=== PATIENT | male | born 1985 | race Caucasian/White ===

== ENCOUNTER → 2018-02-10 | Outpatient (CLI) | payer BC | LOC: GMAE 17:37 | PROVIDERS: ATTEND Family Medicine | DX: R10.13 Epigastric pain (principal); K92.1 Melena ==

== ENCOUNTER → 2018-02-14 | Outpatient (CLI) | payer BC | LOC: GMAE 10:56 | PROVIDERS: ATTEND Family Medicine | DX: R74.0 Nonspecific elevation of levels of transaminase and lactic acid dehydrogenase [LDH] (principal) ==

== ENCOUNTER → 2018-02-19 | Outpatient (CLI) | payer BC ==
--- NOTE | 2018-02-19 10:08 | US ---
EXAM DESCRIPTION: Abdomen,Complete: Ultrasound. CLINICAL HISTORY: EPIGASTRIC ABDOMINAL PAIN COMPARISON: None Available. TECHNIQUE: Transabdominal scannin-dimensional and Doppler modes. FINDINGS: Gallbladder: No intraluminal stones or sludge. Wall thickness 1.7 mm normal range. No fluid surrounding the wall. Nontender with transducer pressure. Common bile duct: 5.3 mm normal caliber. Liver: Increased echogenicity. Long axis of the right lobe is 15.3 cm. Hepatopedal flow in the portal vein which is 1 cm diameter. No duct enlargement. Smooth capsule and no ascites. Pancreas: Not well visualized due to intestinal gas and patient body habitus.. Abdominal aorta: Normal caliber from the proximal segment to the distal bifurcation. IVC: visualized; normal caliber. Spleen normal echogenicity; long axis measurement is 10.8 cm. Right kidney: 9.7 cm long axis. Normal cortical thickness and echogenicity. No hydronephrosis or perinephric fluid. Left kidney: 11.1 cm long axis. Normal cortical thickness and echogenicity. No hydronephrosis or perinephric fluid. IMPRESSION: 1. Fatty liver but not enlarged. Normal vascularity and ducts. Smooth capsule with no ascites. Pancreas was not well seen. 2. Gallbladder and common bile duct unremarkable. 3. Spleen and kidneys negative. Normal caliber of the IVC and the abdominal aorta. Electronically signed by: Edmond Aguirre MD 02/19/2018 10:07 AM CDT
== END ==
LOC: US 08:03
PROVIDERS: ATTEND Family Medicine
DX: K92.1 Melena (principal); R10.13 Epigastric pain; K76.0 Fatty (change of) liver, not elsewhere classified

== ENCOUNTER → 2018-12-15 | Outpatient (CLI) | payer BC ==
--- NOTE | 2018-12-15 13:59 | US ---
EXAM DESCRIPTION: Testicular: Ultrasound. CLINICAL HISTORY: 33 years Male LEFT TESTICULAR PAIN COMPARISON: None. TECHNIQUE: Transcutaneous scanning ; ortega-scale and Doppler modes. FINDINGS: Dimensions of the right testicle are 4.8 x 3.3 x 2.9 cm, with normal echogenicity and normal color Doppler flow. Epididymal head measures 14.6 x 8.2 x 7.2 mm, with calcifications. Heterogeneous echogenicity.. Otherwise, normal color Doppler flow. No scrotal wall thickening. Small Hydrocele. Dimensions of the left testicle are 5.0 x 3.5 x 2.4 cm, with normal echogenicity and normal color Doppler flow. Epididymal head measures 13.7 x 12.2 x 5.3 mm, with normal echogenicity and normal color Doppler flow. No scrotal wall thickening. No Hydrocele. IMPRESSION: 1. Calcifications in the head of the right epididymis but not enlarged. No cysts. Normal vascularity. Right testicle unremarkable. Minimal fluid. No scrotal wall thickening. 2. Normal left testicle, left epididymis, and no scrotal thickness. No hydrocele. Electronically signed by: Edmond Aguirre MD 12/15/2018 1:57 PM CDT
== END ==
LOC: US 09:16
PROVIDERS: ATTEND Family Medicine
DX: N50.89 Other specified disorders of the male genital organs (principal)

== ENCOUNTER → 2018-12-25 | Outpatient (CLI) | payer BC | LOC: GMAE 10:34 | PROVIDERS: ATTEND Family Medicine | DX: M79.641 Pain in right hand (principal) ==

== ENCOUNTER → 2019-02-17 | Outpatient (CLI) | payer BC ==
--- NOTE | 2019-02-18 09:08 | MRI ---
. Study: MRI of the Left Knee. Indication: KNEE PAIN Technique: Multiplanar, multi sequence MRI of the left knee was obtained without intravenous contrast. Comparison: None. Findings: ACL, PCL, MCL, and lateral collateral ligament complex intact. Horizontal cleavage tear posterior horn/root and body medial meniscus disrupting the superior surface as well as the peripheral red zone. Multifocal millimetric para meniscal cyst formation posterior to the posterior horn and root. Discoid lateral meniscus without tear. No high-grade chondral defect medial or lateral knee compartments. 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 Tendinosis quadriceps tendon insertion and patellar tendon origin without fluid-filled tear. Patella normally located. No high-grade chondral defect patellofemoral compartment Small knee effusion. No acute fracture. Impression: Horizontal cleavage tearing posterior horn/root and body medial meniscus. 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 Tendinosis quadriceps tendon insertion and patellar tendon origin. Small knee effusion. Electronically signed by: Oumar Gage MD 02/18/2019 9:07 AM CDT
== END ==
LOC: MRI 12-31 09:05
PROVIDERS: ATTEND Family Medicine
DX: S83.242A Other tear of medial meniscus, current injury, left knee, initial encounter (principal); M65.842 Other synovitis and tenosynovitis, left hand; Q68.2 Congenital deformity of knee

== ENCOUNTER → 2019-03-09 | Outpatient (CLI) | payer BC ==
--- NOTE | 2019-03-09 10:47 | RAD ---
EXAM DESCRIPTION: Pelvis, single view CLINICAL HISTORY: PAIN IN LEFT HIP FINDINGS/ IMPRESSION: Normal mineralization. No advanced arthrosis or focal osteochondral lesion of the hip joints No fracture of the proximal femora or pelvis Electronically signed by: Anton Nj MD 03/09/2019 10:45 AM [facility]
--- NOTE | 2019-03-09 10:48 | RAD ---
EXAM DESCRIPTION: Left knee, 4 radiographs CLINICAL HISTORY: PAIN IN LEFT KNEE FINDINGS/ IMPRESSION: Bipartite patella. No advanced arthrosis or focal osteochondral lesion of the femorotibial compartments Minimal suprapatellar joint fluid. No acute fracture Electronically signed by: Anton Nj MD 03/09/2019 10:47 AM [facility]
== END ==
LOC: RAD 09:22
PROVIDERS: ATTEND Orthopaedic Surgery
DX: M25.552 Pain in left hip (principal); Q74.1 Congenital malformation of knee; M25.462 Effusion, left knee

== ENCOUNTER → 2019-12-29 | Outpatient (CLI) | payer OTHER | LOC: GMAE 14:53 | PROVIDERS: ATTEND Family Medicine | DX: R94.5 Abnormal results of liver function studies (principal); Z79.899 Other long term (current) drug therapy; R73.09 Other abnormal glucose ==

== ENCOUNTER → 2019-12-30 | Outpatient (CLI) | payer BC, OTHER ==
--- NOTE | 2019-12-31 08:30 | US ---
EXAM DESCRIPTION: Liver: ULTRASOUND. CLINICAL HISTORY: ABNORMAL RESULTS OF LIVER FUNCTION STUDIES COMPARISON: Ultrasound abdomen January 2018. TECHNIQUE: Transabdominal scannin-dimensional and Doppler modes. FINDINGS: Gallbladder: normal size, shape, echogenicity; no intraluminal stones or sludge. No fluid around the gallbladder. No wall thickening. 2.7 mm. Non-tender with transducer pressure. Common bile duct: caliber 4.2 mm within normal limits. Liver: Heterogeneously increased. echogenicity; contour liver capsule smooth where seen. No fluid around the liver. Intrahepatic biliary ducts normal caliber. Doppler hepatopedal flow portal vein. 10 mm normal caliber. Long axis right lobe 16.2 cm. Pancreas: normal size and echogenicity. Duct not seen. Right kidney: long axis measures 10.6 cm. Volume 158.8 ml. Echogenicity normal in cortex.. Cortical thickness 1.2 cm. No echogenic stones; no hydronephrosis. Aorta proximal: 1.9 cm normal caliber. IMPRESSION: 1. Steatosis of the liver and borderline enlarged, slightly enlarged compared to the prior study. Otherwise unremarkable. No ascites. Pancreas negative. 2. Gallbladder and ducts are unremarkable. 3. Right renal cortex thin compared to the prior study with normal echogenicity. Kidney otherwise unremarkable. Normal caliber proximal abdominal aorta. Electronically signed by: Edmond Aguirre MD 12/31/2019 8:28 AM CDT
== END ==
LOC: US 09:00
PROVIDERS: ATTEND Family Medicine
DX: R94.5 Abnormal results of liver function studies (principal); K76.0 Fatty (change of) liver, not elsewhere classified

== ENCOUNTER → 2020-01-07 | Outpatient (CLI) | payer OTHER | LOC: LAB.O 10:15 | PROVIDERS: ATTEND Orthopaedic Surgery | DX: Z01.818 Encounter for other preprocedural examination (principal) ==

== ENCOUNTER 2020-01-27 05:31 | Day surgery (SDC) | payer OTHER ==
[2020-01-27] MEDS ORDERED: SODIUM CHL 0.9% 100ML MINI-BAG 100 ML IVPB ONE (05:56)
[2020-01-27] MEDS ORDERED: LACTATED RINGERS 1,000 ML ONE (05:56)
[2020-01-27] MEDS ORDERED: ceFAZolin SODIUM 1 GM VIAL ONE ×3 (05:57→10:31)
[2020-01-27] MEDS ORDERED: KETOROLAC TROMETHAMINE INJ 30 MG/ML VIAL ONE (07:00)
[2020-01-27] MEDS ORDERED: PROPOFOL 200 MG/20 ML VIAL IV ONE (07:00)
[2020-01-27] MEDS ORDERED: ONDANSETRON INJ 4 MG/2 ML VIAL ONE (07:00)
[2020-01-27] MEDS ORDERED: DEXAMETHASONE INJ 10 MG/ML VIAL ONE (07:00)
[2020-01-27] MEDS ORDERED: METOCLOPRAMIDE HCL INJ 10 MG/2 ML VIAL ONE (07:00)
[2020-01-27] MEDS ORDERED: VANCOMYCIN HCL INJ 1,000 MG VIAL IVPB ONE ×2 (07:09→09:41)
[2020-01-27] MEDS ORDERED: BUPIVACAINE LIPOSOME 13.3 MG/ML VIAL INJ ONE ×2 (07:09→09:41)
[2020-01-27] MEDS ORDERED: BUPIVACAINE 0.5% 30 ML VIAL INJ ONE ×2 (07:09→09:41)
[2020-01-27] MEDS ORDERED: MIDAZOLAM INJ 2 MG/2 ML VIAL ONE (08:51)
[2020-01-27] MEDS ORDERED: fentaNYL CITRATE INJ 50 MCG/ML 5 ML AMP ONE (08:52)
[2020-01-27] MEDS ORDERED: SUCCINYLCHOLINE CHLORIDE 200 MG/10 ML VIAL ONE (08:53)
[2020-01-27] MEDS ORDERED: ceFAZolin SODIUM 1 GM VIAL IRRIG ONE (09:41)
[2020-01-27 12:26] VITALS: BP 108/84; TEMP 97.3; O2SAT 96
--- NOTE | 2020-02-05 13:37 | OP ---
DATE OF PROCEDURE: 01/27/20 PREOPERATIVE DIAGNOSIS: 1. Possible medial meniscus tear. 2. Knee pain. POSTOPERATIVE DIAGNOSIS: 1. Medial plica. 2. Chondromalacia. PROCEDURE: 1. Removal of medial plica. SURGEON: Guanako Justice MD. CANE LOADER: Edmond Cifuentes CST, SA-C. ANESTHESIA: General anesthesia. COMPLICATIONS: None. FINDINGS: 1. Normal medial meniscus. 2. Softening of the medial cartilage on the tibia. 3. Normal anterior cruciate ligament, normal posterior cruciate ligament. 4. Normal lateral compartment. 5. Normal lateral meniscus. 6. Normal lateral gutter. 7. Normal suprapatellar pouch. 8. Normal patellofemoral joint. 9. 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 10. Medial plica. INDICATION: Andrew has a history of knee pain on the medial aspect of the knee associated with some popping. It appeared that he had a medial meniscus tear. We discussed the possibility of that being the cause of his pain and what sounded like mechanical symptoms. After discussing the risks, benefits and alternatives to operative therapy, informed consent was obtained for knee arthroscopy. We did obtain consent for possible medial meniscectomy and other indicated procedures. PROCEDURE: The patient was brought to the Operating Room and placed in supine position. General anesthesia was induced and the patient's leg was sterilely prepped and draped. Following prepping and draping, standard anteromedial and anterolateral portals were established. Diagnostic arthroscopy was carried out with the above findings. Attention was then focused on the medial compartment. A 3.5 mm full radius shaver was used to debride the medial plica. The knee was taken through a range of motion and there was no evidence of any other irritation along the medial femoral condyle. The medial meniscus and the lateral meniscus again were thoroughly probed to ensure there was no evidence of instability in that area. The knee was thoroughly irrigated and drained. Following draining of the knee, the wounds were closed with Nylon suture. Sterile dressings were placed. The patient was awoken from anesthesia and taken to Recovery. POSTOPERATIVE PLAN: The patient will be partial weightbearing until followup with us in approximately two days. At that time, we will go over the results and findings of his knee arthroscopy. #[id number] [facility]
== END 2020-01-27 12:10 | disposition home or self-care (01) ==
LOC: AMB 05:31
PROVIDERS: ATTEND Orthopaedic Surgery
DX: M25.562 Pain in left knee (principal); M67.52 Plica syndrome, left knee; M94.262 Chondromalacia, left knee; K21.9 Gastro-esophageal reflux disease without esophagitis; G43.909 Migraine, unspecified, not intractable, without status migrainosus
CPT/HCPCS: 01400; 29875; 80307; J0330; J0690; J1100; J1885; J2250; J2405; J2765; J3010; J3370; J3490; J7050; J7120